=== PATIENT | female | born 1945 | race Two or more races ===

== ENCOUNTER 2024-10-09 23:26 | Emergency (ER) | payer MEDICARE ==
[~2024-10-09] VITALS: Ht 170.2 cm; Wt 70.5 kg
[2024-10-09 23:40] VITALS: BP 138/90; PULSE 114; TEMP 97.8
--- NOTE | 2024-10-10 00:34 | ED.PDOC ---
History of Present Illness HPI Comments 78-year-old female presents with a chief complaint of wheezing s/p taking a vitamin. Patient states that she took a vitamin around 20:00 last night and feels like it may have gotten stuck in her throat. Patient reports that now she is feeling wheezy and that it feels like a past asthma attack. Patient is able to speak in full, complete sentences. Patient denies any supplemental oxygen use. Chief Complaint: Shortness of Breath Time Seen by MD: 23:43 Reviewed Notes: Medications, Allergies Allergies: Coded Allergies: Iodinated Diagnostic Agents (Verified Allergy, Unknown, 10/09/24) Latex (Verified Allergy, Unknown, 10/09/24) Home Meds Active Scripts Albuterol Sulfate (VENTOLIN MDI) 90 Mcg Ih, 90 MCG IN Q4HPRN PRN for 30 Days, #1 INH Prov:JAYLA CRUZ MD 10/10/24 Information Source: Patient Mode of Arrival: Ambulatory Severity: Moderate Timing: Hours Duration: Since onset Prehospital treatment: None Associated signs and symptoms REVIEW OF SYSTEMS: No fever, no chills, or fatigue HEENT: No sore throat, no earache, no congestion, no neck pain. Cardiac: No chest pain. No palpitations. Lungs: Cause shortness of breath, positive cough. GI: No nausea, no vomiting, no diarrhea, no constipation, no abdominal pain : No dysuria, frequency, or urgency. No hematuria. Musculoskeletal: No joint pain , no joint swelling, no extremity edema. Skin: No rash, no itching. Neuro: No headache, no dizziness, no weakness Vital Signs Vital Signs Date Time Temp Pulse Resp B/P (MAP) Pulse Ox O2 Delivery O2 Flow Rate FiO2 10/10/24 03:15 98 Room Air* 0 21 10/10/24 00:40 18 10/09/24 23:40 97.8 114 138/90 (106) 97.8 Physical Exam General: Awake, alert and oriented. No acute distress. Skin: Skin in warm, dry and intact. Appropriate color for ethnicity. HEENT: The head is normocephalic and atraumatic. Conjunctivae are clear without exudates or hemorrhage. Sclera is non-icteric. EOM are intact. No signs of nystagmus. Eyelids are normal in appearance without swelling or lesions. Oral mucosa is pink and moist Neck: The neck is supple with normal range of motion. No JVD. Cardiac: Heart rate and rhythm are normal. No murmurs, gallops, or rubs are auscultated. Respiratory: No signs of respiratory distress. Lung sounds are clear in all lobes bilaterally without rales, ronchi, or wheezes. No stridor Abdominal: Abdomen is soft, non-tender without distention. Bowel sounds are present and normoactive in all four quadrants. Extremities: Upper and lower extremities are atraumatic in appearance without deformity or edema. Neurological: The patient is awake, alert and oriented to person, place, and time with normal speech. Speech is clear. There is no facial asymmetry. Psychiatric: Appropriate mood and affect. Good judgement and insight. Past Medical History PAST MEDICAL HISTORY: Asthma Surgical History: Denies all surgeries [employer] History: Denies all [employer] Hx Family History Family History: Reviewed,noncontributory to illness Social History Smoker: Non-Smoker Alcohol: Denies ETOH Use Drugs: Denies Drug Use Lives In: Home Was a procedure done? Was a procedure done?: No Differential Dx Considerations may include: Asthma exacerbation, esophageal rupture, esophageal foreign body, pneumonia, viral syndrome, acute coronary syndrome, pulmonary embolism, other X-Ray, Labs, Meds, VS Vital Signs Date Time Temp Pulse Resp B/P (MAP) Pulse Ox O2 Delivery O2 Flow Rate FiO2 10/10/24 03:15 98 Room Air* 0 21 10/10/24 00:40 18 94 Room Air* 0 21 10/09/24 23:40 97.8 114 18 138/90 (106) 97 97.8 10/09/24 23:40 97 Room Air* 0 21 Lab Test 10/10/24 02:30 10/10/24 01:04 10/09/24 23:58 Range/Units Influenza Type A Antigen Negative Negative Influenza Type B Antigen Negative Negative SARS-CoV-2 Antigen (Rapid) Negative NEGATIVE Troponin I High Sensitivity 4 4 </=34 ng/L Time of 1ST Reevaluation: 23:43 Reevaluation 1ST: Unchanged Patient Education/Counseling: Diagnosis, Treatment, Prognosis Family Education/Counseling: No Family Present Departure 1 Departure Time of Disposition: 02:49 Impression: Primary Impression: Cough Additional Impression: Dyspnea Disposition: 01 HOME / SELF CARE / HOMELESS Condition: Stable Additional Instructions: ED DISCHARGE INSTRUCTIONS Instructions: Please read all instructions provided in this packet carefully. Although you have been discharged from the Emergency Department, this does not mean that you have a "clean bill of health". No definitive diagnosis for your symptoms has been made today. It is possible that you are in the process of d eveloping a serious illness. This is why you must return to the ED without fail if any new or worsening symptoms (especially if your symptoms include chest pain, trouble breathing, abdominal pain, fever, headache, confusion, trouble seeing, or trouble walking) It is also very important that you see a primary care doctor within the next 3-5 days to follow up. If you are unable to get an appointment, return to the ED for re-evaluation. e-Prescriptions Albuterol Sulfate (VENTOLIN MDI) 90 Mcg Ih 90 MCG IN Q4HPRN PRN for 30 Days, #1 INH Prov: JAYLA CRUZ MD 10/10/24 Comments 78-year-old female presents to the emergency department with cough and shortness of breath. Patient with normal oxygen saturation on room air. EKG negative for signs of ischemia. High sensitivity troponin negative. CXR shows no acute process. Presentation not suggestive of acute coronary syndrome, pulmonary embolism or aortic dissection. Patient improved at time of discharge. No hypoxia, respiratory distress or dyspnea at discharge. Patient able to ambulate without difficulty. Critical Care Note Critical Care Time?: No Stability Stability form required: No I personally scribed for JAYLA CRUZ MD ([email or web address]) on 10/10/24 at 00:34. Electronically submitted by Clark Riley ([email or web address]). JAYLA CRUZ MD Oct 10, 2024 00:34
[2024-10-10] MEDS: ALBUTEROL SULF 2.5 MG/0.5ML(0.5%) NEB SOLN NEB ONE (00:37)
[2024-10-10] MEDS: IPRATROPIUM BROM 0.5 MG/2.5ML INH SOL NEB ONE (00:37)
[2024-10-10 00:40] VITALS: RESP 18
--- NOTE | 2024-10-10 00:47 | DVH ---
CHEST RADIOGRAPH Indication: Cough, wheezing Technique: Single frontal view of the chest was obtained COMPARISON: None FINDINGS: Lines and Tubes: None Lungs: Clear Pleura: No effusion. No pneumothorax. Cardiomediastinal contours: Unremarkable Bones: Unremarkable IMPRESSION: 1. No acute disease.
[2024-10-10] MEDS ORDERED: ALBUAER3 IN (02:50)
[2024-10-10 03:15] VITALS: O2SAT 98
[2024-10-10 03:39] LABS: COVID19 ANTIGEN SOFIA FIA NEGATIVE (NEGATIVE); Rapid Influenza A Negative (Negative); Rapid Influenza B Negative (Negative)
== END 2024-10-10 03:23 | disposition home or self-care (01) ==
LOC: ER 23:26
DX: R05.9 Cough, unspecified (principal); R06.00 Dyspnea, unspecified; J45.909 Unspecified asthma, uncomplicated; Z91.040 Latex allergy status; Z20.822 Contact with and (suspected) exposure to COVID-19
CPT/HCPCS: 36415; 71045; 84484; 87426; 87804; 94640